=== PATIENT | female | born 1970 | race Caucasian/White ===

== ENCOUNTER 2024-05-01 13:03 | Emergency (ER) | payer BC, SELFPAY ==
[2024-05-01 13:09] VITALS: BP 155/100; PULSE 87; O2SAT 99; BMI 30.7
--- NOTE | 2024-05-01 17:28 | ED.GENADUL1 ---
HPI HPI - General Adult General Chief complaint: Ear Stated complaint: EAR ACHES Time Seen by Provider: 05/01/24 15:52 Source: patient Mode of arrival: walk-in Limitations: no limitations History of Present Illness HPI narrative: Patient is a 54-year-old female who is presenting to the ER today with chief complaint of acute on chronic left ear pain this been an ongoing since September. Patient states that she has had 3 separate eardrum ruptures patient is seeing [facility] dentistry on Wednesday, patient is also having additional teeth work done Wednesday and Wednesday. Patient is hoping that her dental procedures will help fix her left ear pain. Patient has no headache. No neck pain. Patient works at [employer]. Patient had no fall, no trauma. Patient is having intermittent left ear pain that will cause her to have facial twitching. Patient has no psychiatric or mental health diagnosis. No neck pain, chest pain, shortness of breath, Julian pain, nausea, vomiting, or any other acute complaints. All systems are negative except as noted/marked. All systems reviewed and otherwise negative. Nurses note and vital signs reviewed and patient is not hypoxic. General: The patient appears well and in no apparent distress. Patient is resting comfortably on cart. Patient is not toxic, lethargic, or listless Skin: Warm, dry, no pallor noted. There is no rash noted. No petechiae, purpura. Head: Normocephalic, atraumatic; patient has full range of motion of cervical spine with no difficulty. No meningeal signs or symptoms. No tenderness to palpation to bilateral frontal and maxillary sinus. Eye: Normal conjunctiva, no drainage, EOMI. PERRL Ears, Nose, Mouth, and Throat: oral mucosa is moist. Patient bilateral TM shows no erythema, perforation, bulging, no acute pathology. No air-fluid levels noted behind bilateral TM. Nares patent. Mouth without vesicles. Cardiovascular: Regular Rate and Rhythm, no murmur, gallop, rub Respiratory: Patient is in no distress, no accessory muscle use, lungs are clear to auscultation, no wheezing, rales or rhonchi Back: non-tender, GI: no tenderness Musculoskeletal: Patient has full range of motion of all of the extremities, no motor, sensory, or focal neurological deficits Neurological: A&O x4, normal speech Psychiatric: Cooperative Related Data Home Medications ?Medication ?Instructions ?Recorded ?Confirmed No Known Home Medications 05/01/24 05/01/24 Allergies Allergy/AdvReac Type Severity Reaction Status Date / Time Penicillins AdvReac Intermediate Anaphylaxis Verified 05/01/24 13:09 Opioid HPI Opioid Management Most Recent Opioid Data: No Data to Display PFSH PFSH Social History Little interest or pleasure in doing things: not at all Feeling down, depressed, or hopeless: not at all Exam Constitutional Vital Signs, click to edit/add: Last Vital Signs Pulse 87 05/01/24 13:09 Resp 18 05/01/24 13:09 BP 155/100 H 05/01/24 13:09 Pulse Ox 99 05/01/24 13:09 O2 Del Method Room Air 05/01/24 13:09 Course Vital Signs Vital signs: Vital Signs Pulse Rate 87 05/01/24 13:09 Respiratory Rate 18 05/01/24 13:09 Blood Pressure 155/100 H 05/01/24 13:09 Pulse Oximetry 99 05/01/24 13:09 Oxygen Delivery Method Room Air 05/01/24 13:09 Pulse Rate 87 05/01/24 13:09 Respiratory Rate 18 05/01/24 13:09 Blood Pressure 155/100 H 05/01/24 13:09 Pulse Oximetry 99 05/01/24 13:09 Oxygen Delivery Method Room Air 05/01/24 13:09 Medical Decision Making MDM Narrative Medical decision making narrative: Patient has no acute pathology. Patient was given Dr. Huntley to follow-up with from ENT. Patient is having dental procedures on Wednesday and Wednesday. Patient was recommended to use Benadryl or melatonin at nighttime to help with sleeping. Patient has no other acute findings at this time. Patient been having symptoms since September. Patient has not followed up with ENT, patient states she is not recall anyone telling her to follow-up with ENT. She has seen her dentist. She has no family doctor, she states that she can get reestablished with a health department. Discharge Plan Discharge Chief Complaint: Ear Clinical Impression: Otalgia of left ear, Atypical face pain Patient Disposition: Home, Self-Care Time of Disposition Decision: 17:25 Condition: Fair Prescriptions / Home Meds: No Action No Known Home Medications Print Language: Bengali Instructions: Earache (ED), Atypical Facial Pain (ED) Additional Instructions: Follow-up with your dentist next Wednesday and Wednesday for dental procedures. Use Benadryl or melatonin at nighttime to help sleep. You need to follow-up with ENT, especially since he been having symptoms since September. Referrals: Didi Abbasi MD [Physician] - 1 week Physician,Non-Staff, [Primary Care Provider] - 1 week
== END 2024-05-01 17:32 | disposition home or self-care (01) ==
PROVIDERS: Emergency Provider Emergency Medicine
DX: H92.02 Otalgia, left ear (principal); G50.1 Atypical facial pain
CPT/HCPCS: 99281